=== PATIENT | male | born 2000 | race Caucasian/White ===

== ENCOUNTER 2020-07-24 20:19 | Emergency (ER) | payer OTHER ==
[~2020-07-24] VITALS: Ht 162.6 cm; Wt 78.0 kg
--- NOTE | 2020-07-24 22:10 | Emergency Department Note ---
History of Present Illnes History of Present Illness Chief Complaint: General Medicine Complaints History of Present Illness This is a 20 year old male, with no significant past medical history, presents with a two-week history of pain, tenderness, and swelling of the lateral aspect of the right great toe, adjacent to the nail bed. Patient has had intermittent tenderness and drainage from around this toenail. He has any previous history of similar symptoms. He's had no fever, chills, nausea, or vomiting. Patient has been cleaning the toe with hydrogen peroxide, and then applying [id number] antibiotic ointment area to the site. Historian: Patient Arrival Mode: Car Termination Clerk Required: No Onset (how long ago): week(s) (2) Location: right great toe pain Quality: throbbing, pain Radiation: Reports non-radiation; Denies back Severity: mild, moderate Onset quality: gradual Duration (how long): week(s) (2) Progression: worsening Chronicity: new Context: Denies recent illness, Denies trauma/injury Relieving factors: none Exacerbating factors: other (pain is worse, when touching the right great toe;) Associated symptoms: Denies fever/chills, Denies nausea/vomiting Treatments prior to arrival: none, NSAID Past Medical/Family History Physician Review I have reviewed the patient's past medical and family history. Any updates have been documented here. Past Medical History Recent Fever: No Clinical Suspicion of Infectio: Yes New/Unexplained Change in Ment: No Past Medical History: None Past Surgical History: None Social History Smoking Cessation: Never Smoker Alcohol Use: Occasional Any Illegal Drug Use: No TB Exposure/Symptoms: No Physically hurt or threatened: No Family History Family history of heart diseas: No Other Any Pre-Existing Lines (PICC,: No Is patient up to date on immun: No Review of Systems Review of Systems Constitutional: Reports no symptoms EENTM: Reports no symptoms Cardiovascular: Reports no symptoms Respiratory: Reports no symptoms Gastrointestinal: Reports no symptoms Musculoskeletal: Reports no symptoms Integumentary: Reports change in color, Reports change in hair/nails (mild erythema, swelling, and tenderness of the lateral aspect of the right great toe, adjacent to the nail bed; the toenail is clearly ingrown, with a small amount of purulent material.) Neurological: Reports no symptoms Hematological/Lymphatic: Reports no symptoms Physical Exam Related Data Allergies: Coded Allergies: No Known Allergies (Unverified , 07/25/20) Physical Exam CONSTITUTIONAL Constitutional: Present well-developed, Present well-nourished; Absent distressed, Absent ill appearing HENT HENT: Present normocephalic, Present atraumatic, Present oropharynx clear/moist, Present nose normal HENT L/R: Present left ext ear normal, Present right ext ear normal EYES Eyes: Reports PERRL, Reports conjunctivae normal NECK Neck: Present ROM normal PULMONARY Pulmonary: Present effort normal, Present breath sounds normal CARDIOVASCULAR Cardiovascular: Present regular rhythm, Present heart sounds normal, Present capillary refill normal, Present normal rate GASTROINTESTINAL GENITOURINARY Genitourinary: Present exam deferred SKIN Skin: Present warm, Present erythema (mild erythema, tenderness, swelling of th e lateral aspect of the right great toe, adjacent to the nail bed; dried, purulent material overlying the wound.) MUSCULOSKELETAL Musculoskeletal: Present ROM normal NEUROLOGICAL Neurological: Present alert, Present oriented x 3, Present no gross motor or sensory deficits PSYCHOLOGICAL Psychological: Present mood/affect normal, Present judgement normal Assessment & Plan Medical Decision Making MDM - Soak the right foot in warm water for 15-20 minutes twice daily, and raise the lateral corner of the right great toe using a metal nail file, to try and help it grew up over the area of inflammation. - May take Ibuprofen 200 mg3 tablets every 6 hours as needed for pain. You may take the Tylenol with codeine, as needed for severe pain, unrelieved by Ibuprofen. Do not take and drive while taking the Tylenol with codeine, and increase fluid and fiber intake, sick and cause constipation. - Follow-up with podiatry next week, if your symptoms are not improving. TRANSITION RN aware [place] website queried, and the patient has had no controlled substances filled in the last 2 years. Assessment & Plan Final Impression: (1) Ingrown toenail of right foot (2) Toe pain, right Depart Disposition: HOME, SELF-[facility] Meds Active Scripts Acetaminophen/Codeine* (TYLENOL # 3*) 1 Ea Tab, 1-2 TAB PO Q6H PRN for pain, #15 TAB 0 Refills Do NOT take and drive or operate machinery Prov:NESHA GAR MD 07/24/20 Cephalexin (CEPHALEXIN) 500 Mg Capsule, 1 TAB-CAP PO TID for INFECTION for 10 Days, #30 CAP 0 Refills Prov:NESHA GAR MD 07/24/20 NESHA GAR MD Jul 24, 2020 22:10
[2020-07-24] MEDS ORDERED: CEPHALEXIN500 MG PO (22:21)
[2020-07-24] MEDS ORDERED: TYLENOL # 31 EA PO (22:23)
== END 2020-07-24 22:39 | disposition home or self-care (01) ==
LOC: FSED 22:11
DX: L60.0 Ingrowing nail (principal); M79.674 Pain in right toe(s)
CPT/HCPCS: 99282